=== PATIENT | male | born 1985 | race Two or more races ===

== ENCOUNTER 2021-07-19 18:10 | Emergency (ER) | payer MEDICAID ==
[~2021-07-19] VITALS: Ht 160 cm; Wt 185.0 kg
[2021-07-19 20:56] LABS: BASOPHILS % (AUTO) 0.4 % (0.0-2.0); EOSINOPHILS % (AUTO) 2.1 % (1.0-6.0); HEMATOCRIT 39.3 % (41-53); HEMOGLOBIN 13.4 g/dL (13.5-17.5); LYMPHOCYTES # (AUTO) 2.4 K/uL (1.0-4.8); LYMPHOCYTES % (AUTO) 27.6 % (22.0-44.0); MEAN CORPUSCULAR HEMOGLOBIN 30.4 pg (26.0-34.0); MEAN CORPUSCULAR HGB CONC 34.2 G/dL (31.0-37.0); MEAN CORPUSCULAR VOLUME 89 fL (80-100); MONOCYTES # (AUTO) 0.7 K/uL (0.1-1.0); MONOCYTES % (AUTO) 7.6 % (2.0-9.0); NEUTROPHILS # (AUTO) 5.5 K/uL (1.8-7.7); NEUTROPHILS % (AUTO) 62.3 % (40.0-70.0); PLATELET COUNT (AUTO) 221 K/uL (150-450); RED BLOOD CELL COUNT(AUTO) 4.42 MIL/uL (4.50-5.90); RED CELL DISTRIBUTION WIDTH 12.7 % (11.5-14.5)
[2021-07-19 21:03] LABS: ANION GAP 6 mmol/L (8-16); CALCIUM, TOTAL 8.8 mg/dL (8.8-10.5); CARBON DIOXIDE 30 mmol/L (22-29); CHLORIDE 105 mmol/L (98-107); CREATININE 0.86 mg/dL (0.60-1.30); GLOMERULAR FILTR. RATE CALC > 60 mL/min (>60); GLUCOSE,RANDOM 107 mg/dL (70-110); POTASSIUM 3.7 mmol/L (3.5-5.1); SODIUM SERUM 141 mmol/L (136-145); UREA NITROGEN, BLOOD 17 mg/dL (7-18)
[2021-07-19 21:08] LABS: ALANINE AMINOTRANSFERASE 38 U/L (12-78); ALBUMIN 3.8 g/dL (3.4-5.0); ALKALINE PHOSPHATASE 103 U/L (46-116); ASPARTATE AMINOTRANSFERASE 13 U/L (15-37); BILIRUBIN,TOTAL 0.3 mg/dL (0.1-1.0); TOTAL PROTEIN, SERUM 7.6 g/dL (6.4-8.2)
[2021-07-19 21:11] LABS: ACETAMINOPHEN < 2 mcg/mL (10-30); SALICYLATE < 2.8 mg/dL (2.8-20.0)
[2021-07-19] MEDS ORDERED: DIAZEPAM 5 MG TABLET PO ONE (22:15)
[2021-07-19] MEDS ORDERED: HALOPERIDOL 5 MG TABLET PO ONE (22:15)
[2021-07-19 23:19] LABS: COVID AG,FIA SOURCE NASOPHARYNGEAL
[2021-07-20 02:14] LABS: AMPHET/METH SCREEN,URINE POSITIVE (NEGATIVE); BARBITURATE SCREEN, URINE NEGATIVE (NEGATIVE); BENZODIAZEPINES SCREEN,URINE POSITIVE (NEGATIVE); CANNABINOID SCREEN,URINE NEGATIVE (NEGATIVE); COCAINE SCREEN,URINE NEGATIVE (NEGATIVE); METHADONE SCREEN, URINE NEGATIVE (NEGATIVE); OPIATE SCREEN,URINE NEGATIVE (NEGATIVE)
[2021-07-20 02:23] LABS: PHENCYCLIDINE SCREEN,URINE NEGATIVE (NEGATIVE)
[2021-07-20 06:00] VITALS: BP 124/82
== END 2021-07-20 09:22 | disposition home or self-care (01) ==
LOC: EMS 18:10
DX: F20.9 Schizophrenia, unspecified (principal); R42 Dizziness and giddiness; Z20.822 Contact with and (suspected) exposure to COVID-19
CPT/HCPCS: 36415; 80053; 80307; 85025; 87426; 99291; G0480; G0481

== ENCOUNTER 2021-12-30 19:55 | Inpatient (IN) | payer MEDICAID ==
[~2021-12-30] VITALS: Ht 160 cm; Wt 86.6 kg
[2021-12-30 20:22] LABS: BASOPHILS % (AUTO) 0.5 % (0.0-2.0); EOSINOPHILS % (AUTO) 2.8 % (1.0-6.0); HEMATOCRIT 39.8 % (41-53); HEMOGLOBIN 13.5 g/dL (13.5-17.5); LYMPHOCYTES # (AUTO) 2.2 K/uL (1.0-4.8); LYMPHOCYTES % (AUTO) 25.3 % (22.0-44.0); MEAN CORPUSCULAR HEMOGLOBIN 29.8 pg (26.0-34.0); MEAN CORPUSCULAR VOLUME 88 fL (80-100); MONOCYTES # (AUTO) 0.6 K/uL (0.1-1.0); NEUTROPHILS # (AUTO) 5.5 K/uL (1.8-7.7); NEUTROPHILS % (AUTO) 64.4 % (40.0-70.0); PLATELET COUNT (AUTO) 250 K/uL (150-450); RED BLOOD CELL COUNT(AUTO) 4.55 MIL/uL (4.50-5.90)
[2021-12-30 20:33] LABS: ANION GAP 8 mmol/L (8-16); CARBON DIOXIDE 29 mmol/L (22-29); CHLORIDE 101 mmol/L (98-107); CREATININE 0.94 mg/dL (0.60-1.30); GLOMERULAR FILTR. RATE CALC > 60 mL/min (>60); GLUCOSE,RANDOM 99 mg/dL (70-110); POTASSIUM 3.6 mmol/L (3.5-5.1); SODIUM SERUM 138 mmol/L (136-145); UREA NITROGEN, BLOOD 7 mg/dL (7-18)
[2021-12-30 20:39] LABS: ALANINE AMINOTRANSFERASE 42 U/L (12-78); ALKALINE PHOSPHATASE 100 U/L (46-116); ASPARTATE AMINOTRANSFERASE 18 U/L (15-37); BILIRUBIN,TOTAL 0.2 mg/dL (0.1-1.0); TOTAL PROTEIN, SERUM 7.7 g/dL (6.4-8.2)
[2021-12-30 21:11] LABS: AMPHET/METH SCREEN,URINE NEGATIVE (NEGATIVE); BARBITURATE SCREEN, URINE NEGATIVE (NEGATIVE); BENZODIAZEPINES SCREEN,URINE NEGATIVE (NEGATIVE); CANNABINOID SCREEN,URINE NEGATIVE (NEGATIVE); COCAINE SCREEN,URINE NEGATIVE (NEGATIVE); METHADONE SCREEN, URINE NEGATIVE (NEGATIVE); OPIATE SCREEN,URINE NEGATIVE (NEGATIVE)
[2021-12-30 21:14] LABS: PHENCYCLIDINE SCREEN,URINE NEGATIVE (NEGATIVE)
[2021-12-30 21:14] LABS: COVID AG,FIA SOURCE NASAL SWAB
[2021-12-30] MEDS ORDERED: QUET300T2 PO (22:59)
[2021-12-31] MEDS: LORazepam 2 MG TABLET PO PRN (00:33)
[2021-12-31] MEDS: ZOLPIDEM TARTRATE 10 MG TABLET PO PRN (01:38)
[2021-12-31 01:57] VITALS: BP 100/69
[2021-12-31 03:25] VITALS: BP 100/69
[2021-12-31 09:08] VITALS: BP 93/53
[2021-12-31] MEDS ORDERED: QUEtiapine FUMARATE 300 MG TABLET PO SCH (10:45)
[2021-12-31] MEDS ORDERED: NICOTINE 14 MG/24 HOUR PATCH TD PRN (14:45)
[2021-12-31] MEDS ORDERED: CloNIDine HCL 0.1 MG TABLET PO PRN (14:45)
[2021-12-31] MEDS ORDERED: MAGNESIUM HYDROXIDE SUSPENSION 30 ML UDCUP PO PRN (14:45)
[2021-12-31] MEDS ORDERED: LOPERAMIDE HCL 2 MG CAPSULE PO PRN (14:45)
[2021-12-31] MEDS ORDERED: PETROLATUM,WHITE 28 GM JELLY TP PRN (14:45)
[2021-12-31] MEDS ORDERED: ONDANSETRON HCL 4 MG TABLET PO PRN (14:45)
[2021-12-31] MEDS ORDERED: DOCUSATE SODIUM 100 MG CAPSULE PO PRN (14:45)
[2021-12-31] MEDS ORDERED: ALBUTEROL SULFATE HFA 90 MCG/PUFF 8 GM INHALER IH PRN (14:45)
[2021-12-31] MEDS ORDERED: GuaiFENesin/D-METHORPHAN [SUGAR-FREE] 200-20MG/10 ML SYRUP UDCUP PO PRN (14:45)
[2021-12-31 17:49] VITALS: BP 128/71
[2021-12-31] MEDS: QUEtiapine FUMARATE 200 MG TABLET PO SCH (20:19)
[2022-01-01] MEDS: QUEtiapine FUMARATE 200 MG TABLET PO SCH ×2 (08:09→21:07)
[2022-01-01 09:23] VITALS: BP 114/58
[2022-01-01 16:41] VITALS: BP 132/82
[2022-01-02 08:00] VITALS: BP 104/67
[2022-01-02] MEDS: QUEtiapine FUMARATE 200 MG TABLET PO SCH ×2 (09:02→20:12)
[2022-01-02 16:00] VITALS: BP 123/60
[2022-01-03 08:58] VITALS: BP 99/53
[2022-01-03] MEDS: QUEtiapine FUMARATE 200 MG TABLET PO SCH ×2 (09:10→20:45)
[2022-01-03 16:37] VITALS: BP 108/74
[2022-01-04 08:00] VITALS: BP 114/63
[2022-01-04] MEDS: QUEtiapine FUMARATE 200 MG TABLET PO SCH (09:00)
[2022-01-04] MEDS: MECLIZINE HCL 25 MG TABLET PO PRN (10:38)
[2022-01-04] MEDS: QUEtiapine FUMARATE 100 MG TABLET PO SCH ×2 (10:40→21:15)
[2022-01-04 16:28] VITALS: BP 110/82
[2022-01-04] MEDS: HALOPERIDOL 5 MG TABLET PO PRN (17:30)
[2022-01-05] MEDS: QUEtiapine FUMARATE 100 MG TABLET PO SCH ×2 (08:41→20:12)
[2022-01-05 09:23] VITALS: BP 94/61
[2022-01-05 10:26] LABS: COVID AG,FIA SOURCE NASOPHARYNGEAL
[2022-01-05 16:00] VITALS: BP 141/80
[2022-01-05] MEDS: HALOPERIDOL 5 MG TABLET PO PRN (17:39)
[2022-01-06] MEDS: MECLIZINE HCL 25 MG TABLET PO PRN (09:02)
[2022-01-06] MEDS: QUEtiapine FUMARATE 100 MG TABLET PO SCH ×2 (09:02→21:03)
[2022-01-06 09:31] VITALS: BP 111/54
[2022-01-06] MEDS: LORazepam 2 MG TABLET PO PRN (12:55)
[2022-01-06 16:00] VITALS: BP 113/68
[2022-01-07] MEDS: QUEtiapine FUMARATE 100 MG TABLET PO SCH ×2 (08:46→20:26)
[2022-01-07 08:59] VITALS: BP 99/65
[2022-01-07 16:55] VITALS: BP 134/75
[2022-01-07] MEDS: HALOPERIDOL 5 MG TABLET PO PRN (18:00)
[2022-01-08 08:10] VITALS: BP 96/72
[2022-01-08] MEDS: QUEtiapine FUMARATE 100 MG TABLET PO SCH ×2 (09:17→20:00)
[2022-01-08 16:25] VITALS: BP 105/77
[2022-01-08] MEDS: MECLIZINE HCL 25 MG TABLET PO PRN (19:15)
[2022-01-09 08:00] VITALS: BP 93/55
[2022-01-09] MEDS: QUEtiapine FUMARATE 100 MG TABLET PO SCH ×2 (08:56→20:23)
[2022-01-09 16:29] VITALS: BP 109/64
[2022-01-09] MEDS: ZOLPIDEM TARTRATE 10 MG TABLET PO PRN (21:12)
[2022-01-10] MEDS: QUEtiapine FUMARATE 100 MG TABLET PO SCH ×2 (08:16→20:26)
[2022-01-10 08:29] VITALS: BP 103/66
[2022-01-10 16:00] VITALS: BP 104/81
[2022-01-10 16:49] VITALS: BP 104/81
[2022-01-10] MEDS: ACETAMINOPHEN 325 MG TABLET PO PRN (16:49)
[2022-01-10] MEDS: ZOLPIDEM TARTRATE 10 MG TABLET PO PRN (20:58)
[2022-01-11] MEDS: QUEtiapine FUMARATE 100 MG TABLET PO SCH ×2 (09:16→20:08)
[2022-01-11 10:12] VITALS: BP 115/62
[2022-01-11 13:19] VITALS: BP 118/75
[2022-01-11 16:51] VITALS: BP 116/61
[2022-01-11] MEDS: ZOLPIDEM TARTRATE 10 MG TABLET PO PRN (20:53)
[2022-01-12] MEDS: QUEtiapine FUMARATE 100 MG TABLET PO SCH ×2 (08:31→20:44)
[2022-01-12 08:40] VITALS: BP 94/64
[2022-01-12] MEDS: LORazepam 2 MG TABLET PO PRN (10:21)
[2022-01-12] MEDS: ESCITALOPRAM OXALATE 10 MG TABLET PO SCH (13:25)
[2022-01-12 14:52] LABS: COVID AG,FIA SOURCE NASAL SWAB
[2022-01-12 16:36] VITALS: BP 106/70
[2022-01-12] MEDS: ZOLPIDEM TARTRATE 10 MG TABLET PO PRN (21:08)
[2022-01-13 08:00] VITALS: BP 101/54
[2022-01-13] MEDS: QUEtiapine FUMARATE 100 MG TABLET PO SCH ×2 (09:15→20:30)
[2022-01-13] MEDS: ESCITALOPRAM OXALATE 10 MG TABLET PO SCH (09:15)
[2022-01-13 16:16] VITALS: BP 130/73
[2022-01-13] MEDS: LORazepam 2 MG TABLET PO PRN (16:37)
[2022-01-13] MEDS: MAG HYDROX/AL HYDROX/SIMETH ES 30 ML SUSPENSION UDCUP PO PRN (18:03)
[2022-01-13] MEDS: ZOLPIDEM TARTRATE 10 MG TABLET PO PRN (20:38)
[2022-01-14] MEDS: HALOPERIDOL 5 MG TABLET PO PRN (00:30)
[2022-01-14 00:44] VITALS: BP 146/73
[2022-01-14 08:00] VITALS: BP 89/53
[2022-01-14] MEDS: QUEtiapine FUMARATE 100 MG TABLET PO SCH ×2 (08:58→20:53)
[2022-01-14] MEDS: ESCITALOPRAM OXALATE 10 MG TABLET PO SCH (08:58)
[2022-01-14 17:07] VITALS: BP 110/83
[2022-01-14 19:50] VITALS: BP 102/65
[2022-01-14] MEDS: LORazepam 2 MG TABLET PO PRN (19:51)
[2022-01-14] MEDS: ZOLPIDEM TARTRATE 10 MG TABLET PO PRN (21:35)
[2022-01-15 08:00] VITALS: BP 101/58
[2022-01-15] MEDS: ESCITALOPRAM OXALATE 10 MG TABLET PO SCH (09:41)
[2022-01-15] MEDS: QUEtiapine FUMARATE 100 MG TABLET PO SCH ×2 (09:43→20:07)
[2022-01-15 16:29] VITALS: BP 101/69
[2022-01-15] MEDS: MECLIZINE HCL 25 MG TABLET PO PRN (17:08)
[2022-01-15] MEDS: ZOLPIDEM TARTRATE 10 MG TABLET PO PRN (20:58)
[2022-01-16 08:00] VITALS: BP 85/56
[2022-01-16] MEDS: QUEtiapine FUMARATE 100 MG TABLET PO SCH ×2 (08:05→20:01)
[2022-01-16 08:07] VITALS: BP 85/56
[2022-01-16] MEDS: ACETAMINOPHEN 325 MG TABLET PO PRN ×2 (08:07→22:41)
[2022-01-16] MEDS: ESCITALOPRAM OXALATE 10 MG TABLET PO SCH (08:07)
[2022-01-16 16:10] VITALS: BP 102/78
[2022-01-16] MEDS: MECLIZINE HCL 25 MG TABLET PO PRN (18:31)
[2022-01-16] MEDS: ZOLPIDEM TARTRATE 10 MG TABLET PO PRN (20:15)
[2022-01-16 22:41] VITALS: BP 120/69
[2022-01-17 08:21] VITALS: BP 112/71
[2022-01-17] MEDS: ESCITALOPRAM OXALATE 10 MG TABLET PO SCH (08:52)
[2022-01-17] MEDS: QUEtiapine FUMARATE 100 MG TABLET PO SCH ×2 (08:55→20:07)
[2022-01-17 16:18] VITALS: BP 140/93
[2022-01-17] MEDS: MECLIZINE HCL 25 MG TABLET PO PRN (21:18)
[2022-01-17] MEDS: ZOLPIDEM TARTRATE 10 MG TABLET PO PRN (21:21)
[2022-01-18 08:00] VITALS: BP 100/64
[2022-01-18] MEDS: QUEtiapine FUMARATE 100 MG TABLET PO SCH ×2 (08:35→20:09)
[2022-01-18] MEDS: ESCITALOPRAM OXALATE 10 MG TABLET PO SCH (08:36)
[2022-01-18] MEDS: HALOPERIDOL 5 MG TABLET PO PRN (14:22)
[2022-01-18] MEDS: LORazepam 2 MG TABLET PO PRN (14:22)
[2022-01-18 16:36] VITALS: BP 101/69
[2022-01-18] MEDS: ZOLPIDEM TARTRATE 10 MG TABLET PO PRN (20:09)
[2022-01-19] MEDS: QUEtiapine FUMARATE 100 MG TABLET PO SCH ×2 (09:07→20:40)
[2022-01-19] MEDS: ESCITALOPRAM OXALATE 10 MG TABLET PO SCH (09:08)
[2022-01-19 09:15] VITALS: BP 102/58
[2022-01-19 10:36] LABS: COVID AG,FIA SOURCE NASOPHARYNGEAL
[2022-01-19 16:00] VITALS: BP 126/73
[2022-01-19 17:00] VITALS: BP 120/79
[2022-01-19] MEDS: LORazepam 2 MG TABLET PO PRN (17:04)
[2022-01-19] MEDS: MAG HYDROX/AL HYDROX/SIMETH ES 30 ML SUSPENSION UDCUP PO PRN (18:00)
[2022-01-19] MEDS: ZOLPIDEM TARTRATE 10 MG TABLET PO PRN (20:40)
[2022-01-20] MEDS: ESCITALOPRAM OXALATE 10 MG TABLET PO SCH (08:28)
[2022-01-20] MEDS: QUEtiapine FUMARATE 100 MG TABLET PO SCH ×2 (08:28→20:27)
[2022-01-20 12:43] VITALS: BP 97/62
[2022-01-20] MEDS: LORazepam 2 MG TABLET PO PRN (13:24)
[2022-01-20 16:35] VITALS: BP 105/70
[2022-01-20] MEDS: ZOLPIDEM TARTRATE 10 MG TABLET PO PRN (21:00)
[2022-01-21] MEDS: QUEtiapine FUMARATE 100 MG TABLET PO SCH ×2 (08:32→20:27)
[2022-01-21] MEDS: ESCITALOPRAM OXALATE 10 MG TABLET PO SCH (08:33)
[2022-01-21 08:39] VITALS: BP 113/64
[2022-01-21] MEDS: HALOPERIDOL 5 MG TABLET PO PRN (11:14)
[2022-01-21] MEDS: LORazepam 2 MG TABLET PO PRN (11:15)
[2022-01-21 16:00] VITALS: BP 110/66
[2022-01-21 16:50] VITALS: BP 114/68
[2022-01-21] MEDS: IBUPROFEN 400 MG TABLET PO PRN (16:50)
[2022-01-21] MEDS: ZOLPIDEM TARTRATE 10 MG TABLET PO PRN (21:10)
[2022-01-22 08:00] VITALS: BP 92/58
[2022-01-22] MEDS: QUEtiapine FUMARATE 100 MG TABLET PO SCH ×2 (08:46→20:01)
[2022-01-22] MEDS: ESCITALOPRAM OXALATE 10 MG TABLET PO SCH (08:47)
[2022-01-22 16:30] VITALS: BP 102/60
[2022-01-22] MEDS: HALOPERIDOL 5 MG TABLET PO PRN (16:33)
[2022-01-22] MEDS: ARIPiprazole 15 MG TABLET PO SCH (20:01)
[2022-01-22] MEDS: ZOLPIDEM TARTRATE 10 MG TABLET PO PRN (21:07)
[2022-01-23] MEDS: QUEtiapine FUMARATE 100 MG TABLET PO SCH ×2 (08:14→20:32)
[2022-01-23] MEDS: ESCITALOPRAM OXALATE 10 MG TABLET PO SCH (08:14)
[2022-01-23 08:41] VITALS: BP 98/64
[2022-01-23] MEDS: MECLIZINE HCL 25 MG TABLET PO PRN (12:15)
[2022-01-23 14:12] VITALS: BP 110/72
[2022-01-23] MEDS: IBUPROFEN 400 MG TABLET PO PRN (14:12)
[2022-01-23] MEDS: HALOPERIDOL 5 MG TABLET PO PRN (14:12)
[2022-01-23 15:12] VITALS: BP 98/69
[2022-01-23] MEDS: LORazepam 2 MG TABLET PO PRN (16:23)
[2022-01-23 16:30] VITALS: BP 124/70
[2022-01-23 16:34] VITALS: BP 128/68
[2022-01-23] MEDS: ZOLPIDEM TARTRATE 10 MG TABLET PO PRN (20:32)
[2022-01-23] MEDS: ARIPiprazole 15 MG TABLET PO SCH (20:32)
[2022-01-24] MEDS: QUEtiapine FUMARATE 100 MG TABLET PO SCH ×2 (08:24→20:26)
[2022-01-24] MEDS: ESCITALOPRAM OXALATE 10 MG TABLET PO SCH (08:24)
[2022-01-24 09:00] VITALS: BP 100/58
[2022-01-24] MEDS: LORazepam 2 MG TABLET PO PRN (14:36)
[2022-01-24] MEDS: HALOPERIDOL 5 MG TABLET PO PRN (14:36)
[2022-01-24 16:37] VITALS: BP 103/66
[2022-01-24] MEDS: ARIPiprazole 15 MG TABLET PO SCH (20:26)
[2022-01-24] MEDS: ZOLPIDEM TARTRATE 10 MG TABLET PO PRN (20:27)
[2022-01-25] MEDS: ESCITALOPRAM OXALATE 10 MG TABLET PO SCH (08:34)
[2022-01-25] MEDS: QUEtiapine FUMARATE 100 MG TABLET PO SCH ×2 (08:35→20:18)
[2022-01-25 09:21] VITALS: BP 117/72
[2022-01-25] MEDS: LORazepam 2 MG TABLET PO PRN (14:57)
[2022-01-25 16:31] VITALS: BP 105/65
[2022-01-25] MEDS: ARIPiprazole 15 MG TABLET PO SCH (20:19)
[2022-01-25] MEDS: ZOLPIDEM TARTRATE 10 MG TABLET PO PRN (21:02)
[2022-01-26] MEDS: LORazepam 2 MG TABLET PO PRN ×2 (01:00→13:01)
[2022-01-26 08:00] VITALS: BP 115/71
[2022-01-26] MEDS: QUEtiapine FUMARATE 100 MG TABLET PO SCH ×2 (08:21→20:06)
[2022-01-26] MEDS: ESCITALOPRAM OXALATE 10 MG TABLET PO SCH (08:21)
[2022-01-26 10:56] LABS: COVID AG,FIA SOURCE NASAL SWAB
[2022-01-26 16:47] VITALS: BP 136/78
[2022-01-26] MEDS: HALOPERIDOL 5 MG TABLET PO PRN (18:54)
[2022-01-26] MEDS: ARIPiprazole 15 MG TABLET PO SCH (20:06)
[2022-01-26] MEDS: ZOLPIDEM TARTRATE 10 MG TABLET PO PRN (21:01)
[2022-01-27 08:00] VITALS: BP 96/60
[2022-01-27] MEDS: QUEtiapine FUMARATE 100 MG TABLET PO SCH ×2 (09:18→20:22)
[2022-01-27] MEDS: ESCITALOPRAM OXALATE 10 MG TABLET PO SCH (09:18)
[2022-01-27 16:24] VITALS: BP 101/70
[2022-01-27] MEDS: HALOPERIDOL 5 MG TABLET PO PRN (17:58)
[2022-01-27] MEDS: LORazepam 2 MG TABLET PO PRN (18:00)
[2022-01-27] MEDS: ZOLPIDEM TARTRATE 10 MG TABLET PO PRN (20:22)
[2022-01-27] MEDS: ARIPiprazole 15 MG TABLET PO SCH (20:22)
[2022-01-28 08:00] VITALS: BP 120/86
[2022-01-28] MEDS: QUEtiapine FUMARATE 100 MG TABLET PO SCH (08:18)
[2022-01-28] MEDS: ESCITALOPRAM OXALATE 10 MG TABLET PO SCH (08:19)
[2022-01-28] MEDS ORDERED: QUET100T34 PO (11:32)
[2022-01-28] MEDS ORDERED: ESCI10 PO (11:32)
[2022-01-28] MEDS ORDERED: ARIP15TA27 PO (11:32)
== END 2022-01-28 10:40 | disposition home or self-care (01) | DRG 750 ==
LOC: EMS 19:57 → 3EI 12-31 00:01 → UNDOADMIN 12-31 00:01
PROVIDERS: ADMIT Psychiatry & Neurology Child & Adolescent Psychiatry; ATTEND Psychiatry & Neurology Child & Adolescent Psychiatry
DX: F20.0 Paranoid schizophrenia (principal); I95.9 Hypotension, unspecified; R45.851 Suicidal ideations; E66.3 Overweight; F32.A Depression, unspecified; F41.9 Anxiety disorder, unspecified; Z20.822 Contact with and (suspected) exposure to COVID-19; F19.10 Other psychoactive substance abuse, uncomplicated; Z59.00 Homelessness unspecified; Z68.33 Body mass index [BMI] 33.0-33.9, adult; Z79.899 Other long term (current) drug therapy; Z71.51 Drug abuse counseling and surveillance of drug abuser
CPT/HCPCS: 76700; 80053; 85025; 87081; 93005; 99285; G0480

== ENCOUNTER 2022-09-16 15:17 | Emergency (ER) | payer MEDICAID ==
[~2022-09-16] VITALS: Ht 160 cm; Wt 81.8 kg
[~2022-09-16 15:17] MED LIST: ARIP15TA27 PO; ESCI10 PO; QUET100T34 PO
[2022-09-16 17:39] LABS: BASOPHILS % (AUTO) 0.2 % (0.0-2.0); EOSINOPHILS % (AUTO) 0.3 % (1.0-6.0); HEMATOCRIT 41.4 % (41-53); LYMPHOCYTES # (AUTO) 1.1 K/uL (1.0-4.8); LYMPHOCYTES % (AUTO) 11.6 % (22.0-44.0); MEAN CORPUSCULAR HEMOGLOBIN 30.3 pg (26.0-34.0); MEAN CORPUSCULAR HGB CONC 33.8 G/dL (31.0-37.0); MEAN CORPUSCULAR VOLUME 90 fL (80-100); MONOCYTES # (AUTO) 0.6 K/uL (0.1-1.0); MONOCYTES % (AUTO) 6.4 % (2.0-9.0); NEUTROPHILS # (AUTO) 7.7 K/uL (1.8-7.7); NEUTROPHILS % (AUTO) 81.5 % (40.0-70.0); PLATELET COUNT (AUTO) 226 K/uL (150-450); RED BLOOD CELL COUNT(AUTO) 4.62 MIL/uL (4.50-5.90); RED CELL DISTRIBUTION WIDTH 13.6 % (11.5-14.5)
[2022-09-16 17:47] VITALS: BP 122/80
[2022-09-16 17:55] LABS: ANION GAP 5 mmol/L (8-16); CARBON DIOXIDE 32 mmol/L (22-29); CHLORIDE 105 mmol/L (98-107); CREATININE 0.83 mg/dL (0.60-1.30); GLUCOSE,RANDOM 94 mg/dL (70-110); POTASSIUM 3.9 mmol/L (3.5-5.1); SODIUM SERUM 142 mmol/L (136-145); UREA NITROGEN, BLOOD 7 mg/dL (7-18)
[2022-09-16 17:56] LABS: GLOMERULAR FILTR. RATE CALC > 60 mL/min (>60)
[2022-09-16 18:01] LABS: ALANINE AMINOTRANSFERASE 42 U/L (12-78); ALBUMIN 3.8 g/dL (3.4-5.0); ALKALINE PHOSPHATASE 99 U/L (46-116); ASPARTATE AMINOTRANSFERASE 17 U/L (15-37); BILIRUBIN,TOTAL 0.3 mg/dL (0.1-1.0); TOTAL PROTEIN, SERUM 7.8 g/dL (6.4-8.2)
[2022-09-16] MEDS ORDERED: LORazepam 1 MG TABLET PO ONE (18:30)
[2022-09-16] MEDS ORDERED: QUEtiapine FUMARATE 100 MG TABLET PO ONE (18:30)
[2022-09-16] MEDS ORDERED: CefTRIAXone 1 GM/DEXTROSE 50 ML IV ONE (19:15)
== END 2022-09-16 22:42 | disposition home or self-care (01) ==
LOC: EDBD → EMS 15:40
DX: F20.9 Schizophrenia, unspecified (principal); R42 Dizziness and giddiness; F99 Mental disorder, not otherwise specified
CPT/HCPCS: 99284; 80053; 85025; G0480